=== PATIENT | male | born 1945 | race African-American/Black ===

== ENCOUNTER 2020-03-10 22:11 | Inpatient (IN) | payer MEDICARE ==
[2020-03-10] MEDS ORDERED: cefTRIAXone\\ROCEPHIN 2 GM VIAL ONE (22:30)
[2020-03-10] MEDS ORDERED: Azithromycin 500 MG VIAL ONE (22:31)
--- NOTE | 2020-03-11 01:14 | PDOC.HHP ---
Hospitalist HPI - History of Present Illness hypoxia History of Present Illness: PCP: Dr. Negro The patient is a 74-year-old male with a past medical history significant for CAD (on aspirin), HTN, HLD that presents to the emergency department as a transfer via EMS from [place] emergency department for Covid pneumonia with hypoxia. The patient reports testing positive for COVID-19 virus sometime in mid January at an unknown clinic. Since that time, the patient has had some general malaise and decreased appetite. Unfortunately, the patient also reports that he lost his 2 days ago to COVID-19 virus. Yesterday, the patient became short of breath and had a low-grade temperature. The patient denies any chest pain, heart palpitations, lightheadedness. Denies any cough, wheezing. No history of DVT/PE. Denies abdominal pain, nausea, vomiting, diarrhea. The patient's grandson drove him to the emergency department in [place] for further evaluation. At [place], the patient was found to be mildly hypoxic. Placed on 2 L nasal cannula with improvement of symptoms. CTA chest negative for Pulmonary embolism. The patient was given full dose Lovenox, dexamethasone, aspirin and Tylenol and transferred to our facility for continuation of care. ED Course: VITAL SIGNS [place] Mar 10, 2020 22:16 SCARLET Lira Madison BP: 143/79, Resp: 15, Temp: 98.8 (Oral), Pain: 0, O2 sat: 97 on (2L Oxygen), Time: 03/10/2020 22:16. VITAL SIGNS [place] Mar 10, 2020 23:30 SCARLET Lira Madison BP: 137/73, Pulse: 63, Resp: 16, Pain: 0, O2 sat: 94 on (2L Oxygen), Time: 03/10/2020 23:30. VITAL SIGNS [facility] Mar 11, 2020 00:27 SCARLET Lira Madison BP: 118/70, Pulse: 61, Resp: 20, Temp: 98.6 (Oral), Pain: 0, O2 sat: 97 on (2L Oxygen), Time: 03/11/2020 00:27. VITAL SIGNS Wed[place] 11, 2020 01:04 SCARLET Lira Madison BP: 154/71, Pulse: 59, Resp: 17, Pain: 0, O2 sat: 97 on (2L Oxygen), Time: 03/11/2020 01:04. Medications: azithromycin intravenous 500 mg IV Piggy Back Given 23:21 03/10/2020 cefTRIAXone injection 2 g IV Piggy Back Given 22:37 03/10/2020 Hospitalist ROS - Review of Systems All other systems reviewed; all pertinent +/- noted in HPI/Subj - Medication Medications: Patient poor story. Unable to reconcile home medication list. Allergies: No known drug allergies Hospitalist History - Past Medical History Source: patient, RN notes reviewed Cardiac: reports: CAD (X1 stent), HTN, [place] (2008), Hyperlipidemia Rheumatologic: reports: Gout - Past Surgical History Past Surgical History: reports: Hernia Repair (Left inguinal hernia), Other (CAD x1, left shoulder surgery) - Family History Other Family History: Noncontributory to this case - Social History Smoking Status: Former smoker (Quit greater than 13 years ago) Alcohol: reports: None Drugs: reports: none Living Situation: Alone Activity level: independent ambulation - Exam General Appearance: NAD, awake alert. negative: ill appearing Eye: anicteric sclera ENT: normocephalic atraumatic, dry oral mucosa Neck: supple, symmetric Heart: RRR, no murmur, no gallops, no rubs, normal peripheral pulses Respiratory: CTAB, no wheezes, no rales, no ronchi, no tachypnea Respiratory - other findings: On 2 L nasal cannula Gastrointestinal: soft, non-tender, normal bowel sounds, no guarding, no rigidity Extremities: no cyanosis, no edema Skin: no rashes Neurological: no focal deficits Musculoskeletal: normal tone, normal strength Psychiatric: normal affect, A&O x 3 Hospitalist Results - Radiology Interpretation Chest x-ray Status: image reviewed by me CT scan - chest Status: report reviewed by me Additional Comment: No pulmonary embolism. Multifocal Covid pneumonitis present. Hospitalist H&P A/P - Problem (1) Acute respiratory failure with hypoxia Code(s): J96.01 - ACUTE RESPIRATORY FAILURE WITH HYPOXIA Status: Acute (2) Pneumonia due to 2019 novel coronavirus Code(s): U07.1 - COVID-19; J12.89 - OTHER VIRAL PNEUMONIA Status: Acute (3) CAD (coronary artery disease) Code(s): I25.10 - ATHSCL HEART DISEASE OF [place] CORONARY ARTERY W/O ANG PCTRS Status: Chronic (4) HTN (hypertension) Code(s): I10 - ESSENTIAL (PRIMARY) HYPERTENSION Status: Chronic (5) HLD (hyperlipidemia) Code(s): E78.5 - HYPERLIPIDEMIA, UNSPECIFIED Status: Chronic (6) Gout Code(s): M10.9 - GOUT, UNSPECIFIED Status: Chronic - Plan Plan: 74/M with PMH CAD presents as a transfer from [place] for Covid pneumonia with hypoxia. Admit medical, observation status. Expected length of stay less than 2 midnights. Tested Covid positive mid January, unable to recall exact date. WBC 5.1, LA 1.5, lymphocytopenia. Troponin 0.017, BNP 77.5, DD 3.14 CXR/CTA chest multifocal Covid pneumonitis, negative PE. #Acute respiratory failure with hypoxia Likely due to Covid pneumonia. Currently on 3 L nasal cannula, stable SPO2. Continue supportive oxygen therapy. #Pneumonia due to 2019 novel coronavirus Continue azithromycin and Rocephin. Continue dexamethasone and Lovenox. Start vitamin C, D3 and zinc. Isolation precautions. Consult ID. Check CRP and ferritin level. #CAD History of stent x1. Takes baby aspirin daily. Patient does not know the name of his antihypertensive medications. Restart home dose baby aspirin. #HTN Restart home medications when reconciled by nursing. #HLD We will restart home medication when reconciled by nursing. #Gout Chronic, stable. On allopurinol at home. We will restart medication when reconciled by nursing. Lovenox for DVT prophylaxis. Pepcid for GI prophylaxis. Full code. Discussed case with Dr. Naheed Sherwood.
[2020-03-11] MEDS ORDERED: Sodium Chloride 0.9% 1,000 ML IV SCH (01:30)
[2020-03-11] MEDS ORDERED: Ondansetron PF 4 MG/2 ML Vial IVP PRN ×2 (01:30→01:34)
[2020-03-11] MEDS ORDERED: Acetaminophen 325 MG TAB PO PRN (01:30)
[2020-03-11] MEDS ORDERED: Ondansetron ODT 4 MG TAB SL PRN (01:30)
[2020-03-11] MEDS ORDERED: Ondansetron ODT 4 MG TAB PO PRN (01:34)
[2020-03-11] MEDS ORDERED: Guaifenesin DM 100-10/5 ML UDCUP PO PRN (01:34)
[2020-03-11 01:51] VITALS: BMI 33.1
[2020-03-11 05:23] LABS: #Eosinphils 0.1 thou/uL (0.0-0.7); #Lymphocytes 0.6 thou/uL (1.20-3.40); #Monocytes 0.2 thou/uL (0.11-0.59); #Neutrophils 3.6 thou/uL (1.40-6.50); %Eosinophils 1.3 % (0.0-10.0); %Lymphocytes 13.2 % (21.0-51.0); %Monocytes 4.9 % (0.0-10.0); %Neutrophils 80.7 % (42.0-75.0); Hemoglobin 10.4 g/dL (14.0-18.0); Mean Corpuscular HGB CONC 33.3 g/dL (32.0-36.0); Mean Corpuscular Hemoglobin 30.8 pg (27.0-31.0); Mean Corpuscular Volume 92.3 fL (78.0-98.0); Mean Platelet Volume 10.4 fL (7.4-10.4); Platelet Count 87 thou/uL (130-400); RBC Distribution Width 13.1 % (11.5-14.5); Red Blood Cell (RBC) Count 3.39 mill/uL (4.70-6.10); White Blood Cell (WBC) Count 4.5 thou/uL (4.8-10.8)
[2020-03-11 05:40] LABS: Anion Gap 16 mmol/L (10-20); BUN (Urea Nitrogen) 23 mg/dL (8.4-25.7); Calc. Creatinine Clearance 93 mL/min (70-130); Calcium 8.2 mg/dL (7.8-10.44); Carbon Dioxide 22 mmol/L (23-31); Chloride 105 mmol/L (98-107); Glucose 143 mg/dL (83-110); Potassium 4.5 mmol/L (3.5-5.1); Sodium 138 mmol/L (136-145)
[2020-03-11] MEDS ORDERED: Enoxaparin Sodium 40 MG/0.4 ML SYRINGE SC SCH (09:00)
[2020-03-11] MEDS: Famotidine 20 MG TAB PO SCH ×2 (09:29→19:44)
[2020-03-11] MEDS: Aspirin 81 mg Enteric Coated Tablet PO SCH (09:29)
[2020-03-11] MEDS: Zinc Sulfate 220 MG CAP PO SCH (09:30)
[2020-03-11] MEDS: Cholecalciferol 1,000 UNITS (25 MCG) TAB PO SCH (09:30)
[2020-03-11] MEDS: Ascorbic Acid 500 mg Chewable Tablet PO SCH (09:30)
[2020-03-11] MEDS: Dexamethasone 4 mg/ml Vial SLOW IVP SCH (09:31)
[2020-03-11] MEDS: Famotidine/PF 20 mg/2ml Vial SLOW IVP SCH ×2 (09:31→19:45)
--- NOTE | 2020-03-11 17:55 | CON ---
DATE OF CONSULTATION: 03/11/2020 REASON FOR CONSULTATION: Recrudescence of dyspnea after recovery from COVID. HISTORY OF PRESENT ILLNESS: A 74-year-old with history of gout, coronary artery disease with myocardial infarction and stents, and hypertension, who was diagnosed with SARS-CoV-2 infection about 3 weeks ago. Symptoms started four weeks ago actually. He never had to be admitted. His was sick at the same time more or less and both recovered, but then he developed worsening dyspnea and came back to the emergency room. Not much cough at all. No headaches. His appetite is great. No chest pain. No sputum production. No abdominal pain or diarrhea. No genitourinary symptoms. No fever. PAST MEDICAL HISTORY: Gout, coronary artery disease, myocardial infarction with stents, hyperlipidemia, and hypertension. PAST SURGICAL HISTORY: Hernia repair and left shoulder surgery. SOCIAL HISTORY: Retired, used to work for [employer]. Former smoker, is not currently smoking cigarettes, quit more than 10 years ago. Lives in [place]. FAMILY HISTORY: Coronary artery disease, diabetes type 2, and hypertension. ALLERGIES: NONE. MEDICATION LIST: 1. Aspirin. 2. Azithromycin. 3. Ceftriaxone. 4. Decadron. 5. Ondansetron. 6. Zinc. PHYSICAL EXAMINATION: VITAL SIGNS: He has been afebrile, T-max 98.6, blood pressure 150/75, heart rate 69, respiratory rate 16 to 20, and O2 saturation 98 on room air. He started at 2 L nasal cannula and is saturating at 100, so they were de-escalated. SKIN: Normal. There is no lymphadenopathy. HEENT: Unremarkable. LUNGS: With one or two focal areas with inspiratory crackles, most of the lung esquivel are clear to auscultation. HEART: S1 and S2. Regular rate without murmurs. ABDOMEN: Soft, not distended or tender. No ascites. No bladder distention. EXTREMITIES: No joint inflammatory activity. Moves extremities equally. LABORATORY DATA: He had a chest CTA, which showed no PE and multifocal COVID pneumonitis probably residual from the recent infection. White cell count 4.5, hemoglobin 10.4, platelets 87,000, and 80% neutrophils. Creatinine 1.12. Ferritin 232. CRP 5.13. ASSESSMENT AND PLAN: Coronary artery disease and hypertension with having recovered from recent SARS-CoV-2 infection. The time since symptom onset is about 28 days, so he is way past the infectious period, I would recommend discontinuation of the isolation precautions. Discontinue azithromycin, discontinue Rocephin, may continue Decadron. The patient's with SARS-CoV-2 infection sometimes go through a phase of autoimmune recrudescence after recovery and this may be what he is experiencing. It seems to be mild and he should be able to be discharged soon. In view of hx of prior [place] need to evaluate his cardiac function with echo. Job ID: [id number] MTDD
[2020-03-11] MEDS: Enoxaparin Sodium 40 MG/0.4 ML SYRINGE SC SCH (19:44)
[2020-03-11] MEDS ORDERED: Melatonin 3 MG TAB PO PRN (19:52)
[2020-03-11] MEDS ORDERED: cefTRIAXone\\ROCEPHIN 2 GM in Sodium Chloride 0.9% 100 ML IVPB SCH (22:00)
[2020-03-11] MEDS ORDERED: Azithromycin 500 MG in Sodium Chloride 0.9% 250 ML 250 ML IVPB SCH (23:00)
[2020-03-12] MEDS: Famotidine/PF 20 mg/2ml Vial SLOW IVP SCH (07:42)
[2020-03-12] MEDS: Cholecalciferol 1,000 UNITS (25 MCG) TAB PO SCH (08:09)
[2020-03-12] MEDS: Zinc Sulfate 220 MG CAP PO SCH (08:09)
[2020-03-12] MEDS: Famotidine 20 MG TAB PO SCH ×2 (08:10→20:18)
[2020-03-12] MEDS: Ascorbic Acid 500 mg Chewable Tablet PO SCH (08:10)
[2020-03-12] MEDS: Dexamethasone 4 mg/ml Vial SLOW IVP SCH (08:10)
[2020-03-12] MEDS: Aspirin 81 mg Enteric Coated Tablet PO SCH (08:10)
[2020-03-12] MEDS ORDERED: Melatonin 3 MG TAB PO PRN (09:09)
--- NOTE | 2020-03-12 19:17 | PDOC.HOSPP ---
- Subjective Encounter Date: 03/12/20 Encounter Time: 11:45 Subjective: pt up in bed no complains - Objective Vital Signs & Weight: Vital Signs (12 hours) Temp Pulse Resp BP Pulse Ox 03/12/20 15:28 98.4 F 60 16 148/70 H 94 L 03/12/20 11:41 98.4 F 61 18 143/66 H 96 03/12/20 07:31 98.3 F 57 L 18 151/72 H 98 Weight Weight 247 lb 9.6 oz I&O: 03/11/20 03/12/20 03/13/20 06:59 06:59 06:59 Intake Total 540 1752 1037 Output Total 425 650 825 Balance 115 1102 212 Result Diagrams: 03/11/20 04:47 03/11/20 04:47 Hospitalist ROS - Review of Systems Respiratory: denies: cough, dry, shortness of breath, hemoptysis, SOB with excertion, pleuritic pain, sputum, wheezing, other Cardiovascular: denies: chest pain, palpitations, orthopnea, paroxysmal noc. dyspnea, edema, light headedness, other Gastrointestinal: denies: nausea, vomiting, abdominal pain, diarrhea, constipation, melena, hematochezia, other - Medication Medications: Active Medications Generic Name Dose Route Start Last Admin Trade Name Sergioq PRN Reason Stop Dose Admin Ascorbic Acid 1,000 mg 03/11/20 09:00 03/12/20 08:10 Ascorbic Acid 500 Mg Chewable Tablet PO 1,000 mg DAILY MILAD Administration Aspirin 81 mg 03/11/20 09:00 03/12/20 08:10 Aspirin 81 Mg Enteric Coated Tablet PO 81 mg DAILY MILAD Administration Cholecalciferol 5,000 units 03/11/20 09:00 03/12/20 08:09 Cholecalciferol 1,000 Units (25 Mcg) Tab PO 5,000 units DAILY MILAD Administration Dexamethasone 6 mg 03/11/20 09:00 03/12/20 08:10 Dexamethasone 4 Mg/Ml Vial SLOW IVP 6 mg DAILY MILAD Administration Enoxaparin Sodium 40 mg 03/11/20 21:00 03/11/20 19:44 Enoxaparin Sodium 40 Mg/0.4 Ml Syringe SC 40 mg HS MILAD Administration Famotidine 20 mg 03/11/20 09:00 03/12/20 08:10 Famotidine 20 Mg Tab PO 20 mg BID MILAD Administration Zinc Sulfate 220 mg 03/11/20 09:00 03/12/20 08:09 Zinc Sulfate 220 Mg Cap PO 220 mg DAILY MILAD Administration - Exam Neck: negative: supple, symmetric, no JVD, no thyromegaly, no lymphadenopathy, no carotid bruit, JVD Heart: negative: RRR, no murmur, no gallops, no rubs, normal peripheral pulses, irregular, diminshed peripheral pulses, murmur present, II/IV, III/IV Respiratory: negative: CTAB, no wheezes, no rales, no ronchi, normal chest expansion, no tachypnea, normal percussion, rales, rhonchi, tachypneic, wheezes Hosp A/P (1) Acute respiratory failure with hypoxia Code(s): J96.01 - ACUTE RESPIRATORY FAILURE WITH HYPOXIA Status: Acute (2) Pneumonia due to 2019 novel coronavirus Code(s): U07.1 - COVID-19; J12.89 - OTHER VIRAL PNEUMONIA Status: Acute (3) CAD (coronary artery disease) Code(s): I25.10 - ATHSCL HEART DISEASE OF [place] CORONARY ARTERY W/O ANG PCTRS Status: Chronic (4) HLD (hyperlipidemia) Code(s): E78.5 - HYPERLIPIDEMIA, UNSPECIFIED Status: Chronic (5) HTN (hypertension) Code(s): I10 - ESSENTIAL (PRIMARY) HYPERTENSION Status: Chronic - Plan pt feels well. will continue steroids. will discharge home once echo is done and read.
[2020-03-12] MEDS: Enoxaparin Sodium 40 MG/0.4 ML SYRINGE SC SCH (20:17)
[2020-03-12] MEDS: Carvedilol 3.125 MG TAB PO SCH (20:18)
[2020-03-12] MEDS ORDERED: Atorvastatin Calcium 20 MG TAB PO SCH (21:00)
[2020-03-13 07:52] VITALS: BP 137/71; TEMP 97.7
[2020-03-13] MEDS: Carvedilol 3.125 MG TAB PO SCH (08:56)
[2020-03-13] MEDS: Ascorbic Acid 500 mg Chewable Tablet PO SCH (08:56)
[2020-03-13] MEDS: Aspirin 81 mg Enteric Coated Tablet PO SCH (08:56)
[2020-03-13] MEDS: Cholecalciferol 1,000 UNITS (25 MCG) TAB PO SCH (08:56)
[2020-03-13] MEDS: Famotidine 20 MG TAB PO SCH (08:57)
[2020-03-13] MEDS: Dexamethasone 4 mg/ml Vial SLOW IVP SCH (08:57)
[2020-03-13] MEDS: Zinc Sulfate 220 MG CAP PO SCH (08:58)
[2020-03-13] MEDS ORDERED: Finasteride 5 MG TAB PO SCH (09:00)
[2020-03-13] MEDS ORDERED: Amlodipine 5 MG TAB PO SCH (09:00)
[2020-03-13] MEDS ORDERED: Allopurinol 300 MG TAB PO SCH (09:00)
[2020-03-13] MEDS ORDERED: Lisinopril 2.5 MG TAB PO SCH (09:00)
--- NOTE | 2020-03-14 14:28 | PDOC.DS.DS ---
Provider - Provider Date of Admission: 03/11/20 16:27 Date of Discharge: 03/13/20 Admitting Provider: Naheed Nunez MD Consultations: Infectious Disease Primary Care Physician: David Negro MD Course - Hospital Course Hospital Course: Patient is a very pleasant 74-year-old male who comes into the hospital for shortness of breath. Patient was diagnosed with Covid in mid January. Patient while in the hospital was on room air 100%. At this time ID was consulted. Patient had an echocardiogram which indicated an EF of 50 to 55%. Patient at this time was discharged home. Patient will be sent home with steroids. Resuscitation Status: 03/11/20 01:34 Resuscitation Status Routine Co-Sign Provider: Resuscitation Status: FULL: Full Resuscitation Discussed with: patient - Labs Lab Results: 03/11/20 04:47 03/11/20 04:47 - Physical Exam Vitals: Weight Weight 247 lb 9.6 oz Physical Exam: The patient was seen and examined on the day of discharge. Problem - Problem (1) Acute respiratory failure with hypoxia Code(s): J96.01 - ACUTE RESPIRATORY FAILURE WITH HYPOXIA Status: Acute (2) Pneumonia due to 2019 novel coronavirus Code(s): U07.1 - COVID-19; J12.89 - OTHER VIRAL PNEUMONIA Status: Acute (3) CAD (coronary artery disease) Code(s): I25.10 - ATHSCL HEART DISEASE OF [place] CORONARY ARTERY W/O ANG PCTRS Status: Chronic (4) HLD (hyperlipidemia) Code(s): E78.5 - HYPERLIPIDEMIA, UNSPECIFIED Status: Chronic (5) HTN (hypertension) Code(s): I10 - ESSENTIAL (PRIMARY) HYPERTENSION Status: Chronic Plan - Discharge Medications Prescriptions: Dexamethasone [Decadron] 6 mg PO DAILY #8 tablet Aspirin [Ecotrin Low Strength] 81 mg PO DAILY #10 tab Cholecalciferol (Vitamin D3) [Vitamin D] 1,000 unit PO DAILY #15 capsule Home Medications: Medication Instructions Recorded Confirmed Type Allopurinol 300 mg PO DAILY 03/11/20 03/11/20 History Amlodipine [Norvasc] 5 mg PO DAILY 03/11/20 03/11/20 History Atorvastatin Calcium [Lipitor] 20 mg PO DAILY 03/11/20 03/11/20 History Carvedilol [Coreg] 3.125 mg PO BID 03/11/20 03/11/20 History Finasteride [Proscar] 5 mg PO DAILY 03/11/20 03/11/20 History Lisinopril [Zestril] 2.5 mg PO DAILY 03/11/20 03/11/20 History Melatonin 5 mg PO HS PRN 03/11/20 03/11/20 History Aspirin [Ecotrin Low Strength] 81 mg PO DAILY #10 tab 03/12/20 Rx Cholecalciferol (Vitamin D3) 1,000 unit PO DAILY #15 capsule 03/12/20 Rx [Vitamin D] Dexamethasone [Decadron] 6 mg PO DAILY #8 tablet 03/12/20 Rx Allergies: No Known Drug Allergies Allergy (Verified 03/11/20 02:33) PER ER NOTES - Discharge Instructions Discharge Instructions:: please take the steroids with food. Activity:: Activity as Tolerated Nourishment:: Heart Healthy Diet - Follow up Plan Referrals: David Negro MD [Primary Care Provider] - Disposition: HOME Quality - Care Measures CORE MEASURES:: N/A
== END 2020-03-13 09:41 | disposition home or self-care (01) | DRG 177 ==
LOC: ERS 22:11 → EEVIPCON 23:34 → 2SW 23:34 → OBSVTOIN 03-11 16:27
PROVIDERS: ADMIT Internal Medicine; ATTEND Internal Medicine
PROC: 8E0ZXY6 Isolation (ICD-10-PCS; principal; 2020-03-11)
DX: U07.1 COVID-19 (principal); J96.01 Acute respiratory failure with hypoxia; J12.89 Other viral pneumonia; I25.10 Atherosclerotic heart disease of native coronary artery without angina pectoris; I10 Essential (primary) hypertension; E78.5 Hyperlipidemia, unspecified; M10.9 Gout, unspecified; I25.2 Old myocardial infarction; Z87.891 Personal history of nicotine dependence; Z95.1 Presence of aortocoronary bypass graft
CPT/HCPCS: 36415; 80048; 82728; 85025; 86140; 93306; 96365; 96367; 96375; G0378; J0456; J0696; J1100; J1650

== ENCOUNTER 2025-01-17 14:00 | Inpatient (IN) | payer MEDICARE ==
[2025-01-17] MEDS ORDERED: hydrALAZINE 20 MG/ML VIAL SLOW IVP SCH (19:00)
[2025-01-17] MEDS ORDERED: Acetaminophen 325 MG TAB PO PRN (19:27)
[2025-01-17] MEDS ORDERED: Ondansetron PF 4 MG/2 ML Vial IVP PRN (19:27)
[2025-01-17] MEDS ORDERED: Sodium Chloride 0.65% Nasal 44 ML BOT EA NARE PRN (19:44)
[2025-01-17 20:08] LABS: #Basophils Less than 0.03 10x3/uL (0.0-0.2); #Eosinophils Less than 0.03 10x3/uL (0.0-0.7); #Monocytes 0.04 10x3/uL (0.11-0.59); #Neutrophils 4.34 10x3/uL (1.40-6.50); %Basophils 0.2 % (0.0-1.0); %Eosinophils 0.0 % (0.0-10.0); %Lymphocytes 12.5 % (21.0-51.0); %Monocytes 0.8 % (0.0-10.0); %Neutrophils 86.3 % (42.0-75.0); Hematocrit 29.7 % (42.0-52.0); Hemoglobin 9.2 g/dL (14.0-18.0); Mean Corpuscular Hemoglobin 31.9 pg (27.0-31.0); Mean Corpuscular Volume 103.1 fL (78.0-98.0); Platelet Count 143 10x3/uL (130-400); Red Blood Cell (RBC) Count 2.88 mill/uL (4.70-6.10); White Blood Cell (WBC) Count 5.03 10x3/uL (4.8-10.8)
[2025-01-17 20:27] LABS: Anion Gap 17 mmol/L (10-20); BUN (Urea Nitrogen) 36 mg/dL (8.4-25.7); Calc. Creatinine Clearance 42 mL/min (70-130); Calcium 9.5 mg/dL (7.8-10.44); Carbon Dioxide 15 mmol/L (23-31); Chloride 114 mmol/L (98-107); Glucose 139 mg/dL (83-110); Magnesium 1.9 mg/dL (1.6-2.6); Potassium 5.2 mmol/L (3.5-5.1); Sodium 141 mmol/L (136-145)
[2025-01-17] MEDS: Furosemide 40 MG (4 mL) VIAL SLOW IVP SCH (20:49)
[2025-01-17] MEDS: Carvedilol 6.25 MG TAB PO SCH (22:21)
[2025-01-17] MEDS: guaiFENesin/DM ER PO SCH (22:21)
[2025-01-17] MEDS: Heparin 5,000 UNITS/ML VIAL SC SCH (22:23)
[2025-01-18 01:31] LABS: Bacteria/HPF None Seen HPF (None Seen); CAUTI Indications for Culture Alt mental st,lethar; Glucose, Urine (Dipstick) Normal (Negative); Leukocyte Negative Leu/uL (Negative); Protein, Urine (Dipstick) Negative (Neg-Trace); RBC/HPF 0-3 HPF (0-3); Specific Gravity, Urine 1.008 (1.002-1.036); WBC/HPF None Seen HPF (0-3)
[2025-01-18 01:37] LABS: Urine Culture Reflex No No
[2025-01-18] MEDS: Furosemide 40 MG (4 mL) VIAL SLOW IVP SCH (06:26)
[2025-01-18] MEDS ORDERED: Magnesium 2 GM/50 ML(in water) 2 GM in Premix 1 BAG IVPB SCH (08:00)
[2025-01-18] MEDS: predniSONE 20 MG TAB PO SCH (09:00)
[2025-01-18] MEDS ORDERED: Enoxaparin 40 MG (0.4 mL) SYRINGE SC SCH (09:00)
[2025-01-18] MEDS: Sodium Bicarbonate Tab 325 MG TAB PO SCH (14:19)
[2025-01-18] MEDS ORDERED: hydrALAZINE 20 MG/ML VIAL SLOW IVP PRN (14:49)
[2025-01-19 05:39] LABS: #Basophils Less than 0.03 10x3/uL (0.0-0.2); #Eosinophils Less than 0.03 10x3/uL (0.0-0.7); #Monocytes 0.82 10x3/uL (0.11-0.59); #Neutrophils 6.06 10x3/uL (1.40-6.50); %Basophils 0.0 % (0.0-1.0); %Eosinophils 0.1 % (0.0-10.0); %Lymphocytes 14.1 % (21.0-51.0); %Monocytes 10.2 % (0.0-10.0); %Neutrophils 75.4 % (42.0-75.0); Hematocrit 25.1 % (42.0-52.0); Hemoglobin 8.0 g/dL (14.0-18.0); Mean Corpuscular Hemoglobin 31.1 pg (27.0-31.0); Mean Corpuscular Volume 97.7 fL (78.0-98.0); Platelet Count 140 10x3/uL (130-400); Red Blood Cell (RBC) Count 2.57 mill/uL (4.70-6.10); White Blood Cell (WBC) Count 8.04 10x3/uL (4.8-10.8)
[2025-01-19 05:41] LABS: Anion Gap 15 mmol/L (10-20); BUN (Urea Nitrogen) 57 mg/dL (8.4-25.7); Calc. Creatinine Clearance 31 mL/min (70-130); Calcium 8.5 mg/dL (7.8-10.44); Carbon Dioxide 22 mmol/L (23-31); Chloride 109 mmol/L (98-107); Glucose 116 mg/dL (83-110); Potassium 4.9 mmol/L (3.5-5.1); Sodium 141 mmol/L (136-145)
[2025-01-19 08:52] LABS: Iron 43 ug/dL (65-175); Iron Binding Capacity, Total 294 mcg/dL (261-462)
[2025-01-19] MEDS: EPOETIN ALFA-EPBX (ESRD) 10,000 UNITS/ML VIAL SC SCH (12:09)
[2025-01-20 05:52] LABS: Hematocrit 25.2 % (42.0-52.0); Hemoglobin 8.0 g/dL (14.0-18.0); Mean Corpuscular Hemoglobin 30.9 pg (27.0-31.0); Mean Corpuscular Volume 97.3 fL (78.0-98.0); Platelet Count 147 10x3/uL (130-400); Red Blood Cell (RBC) Count 2.59 mill/uL (4.70-6.10); White Blood Cell (WBC) Count 7.35 10x3/uL (4.8-10.8)
[2025-01-20 06:09] LABS: Anion Gap 14 mmol/L (10-20); BUN (Urea Nitrogen) 74 mg/dL (8.4-25.7); Calc. Creatinine Clearance 30 mL/min (70-130); Calcium 8.7 mg/dL (7.8-10.44); Carbon Dioxide 22 mmol/L (23-31); Chloride 108 mmol/L (98-107); Glucose 103 mg/dL (83-110); Potassium 4.6 mmol/L (3.5-5.1); Sodium 139 mmol/L (136-145)
[2025-01-20] MEDS: Furosemide 40 MG TAB PO SCH (09:06)
[2025-01-20] MEDS: Melatonin 3 MG TAB PO SCH (23:18)
[2025-01-21 04:50] LABS: Hemoglobin 7.7 g/dL (14.0-18.0)
[2025-01-21 05:05] LABS: Anion Gap 14 mmol/L (10-20); BUN (Urea Nitrogen) 86 mg/dL (8.4-25.7); Calc. Creatinine Clearance 27 mL/min (70-130); Calcium 8.3 mg/dL (7.8-10.44); Carbon Dioxide 22 mmol/L (23-31); Chloride 111 mmol/L (98-107); Glucose 102 mg/dL (83-110); Potassium 4.6 mmol/L (3.5-5.1); Sodium 142 mmol/L (136-145)
[2025-01-21] MEDS: predniSONE 20 MG TAB PO SCH (09:08)
[2025-01-21 13:04] LABS: Hemoglobin 9.0 g/dL (14.0-18.0)
[2025-01-22 06:16] VITALS: BMI 30.8
[2025-01-22 06:58] LABS: Hematocrit 25.7 % (42.0-52.0); Hemoglobin 8.0 g/dL (14.0-18.0); Mean Corpuscular Hemoglobin 31.1 pg (27.0-31.0); Mean Corpuscular Volume 100.0 fL (78.0-98.0); Platelet Count 146 10x3/uL (130-400); Red Blood Cell (RBC) Count 2.57 mill/uL (4.70-6.10); White Blood Cell (WBC) Count 7.36 10x3/uL (4.8-10.8)
[2025-01-22 07:14] LABS: Anion Gap 12 mmol/L (10-20); BUN (Urea Nitrogen) 89 mg/dL (8.4-25.7); Calc. Creatinine Clearance 31 mL/min (70-130); Calcium 8.5 mg/dL (7.8-10.44); Carbon Dioxide 21 mmol/L (23-31); Chloride 115 mmol/L (98-107); Glucose 88 mg/dL (83-110); Potassium 4.3 mmol/L (3.5-5.1); Sodium 144 mmol/L (136-145)
[2025-01-23 05:49] LABS: #Basophils Less than 0.03 10x3/uL (0.0-0.2); #Eosinophils 0.17 10x3/uL (0.0-0.7); #Monocytes 0.90 10x3/uL (0.11-0.59); #Neutrophils 4.68 10x3/uL (1.40-6.50); %Basophils 0.1 % (0.0-1.0); %Eosinophils 2.1 % (0.0-10.0); %Lymphocytes 27.0 % (21.0-51.0); %Monocytes 11.3 % (0.0-10.0); %Neutrophils 58.9 % (42.0-75.0); Hematocrit 27.7 % (42.0-52.0); Hemoglobin 8.5 g/dL (14.0-18.0); Mean Corpuscular Hemoglobin 30.7 pg (27.0-31.0); Mean Corpuscular Volume 100.0 fL (78.0-98.0); Platelet Count 147 10x3/uL (130-400); Red Blood Cell (RBC) Count 2.77 mill/uL (4.70-6.10); White Blood Cell (WBC) Count 7.96 10x3/uL (4.8-10.8)
[2025-01-23 06:14] LABS: Anion Gap 13 mmol/L (10-20); BUN (Urea Nitrogen) 82 mg/dL (8.4-25.7); Calc. Creatinine Clearance 32 mL/min (70-130); Calcium 8.8 mg/dL (7.8-10.44); Carbon Dioxide 20 mmol/L (23-31); Chloride 115 mmol/L (98-107); Glucose 95 mg/dL (83-110); Potassium 4.3 mmol/L (3.5-5.1); Sodium 144 mmol/L (136-145)
[2025-01-23 08:05] VITALS: TEMP 98
[2025-01-23 13:44] VITALS: BP 162/73
== END 2025-01-23 16:49 | disposition home or self-care (01) | DRG 291 ==
LOC: OBS 18:02
PROVIDERS: ADMIT Hospitalist; ATTEND Internal Medicine
DX: I13.0 Hypertensive heart and chronic kidney disease with heart failure and stage 1 through stage 4 chronic kidney disease, or unspecified chronic kidney disease (principal); I50.23 Acute on chronic systolic (congestive) heart failure; N17.9 Acute kidney failure, unspecified; E87.20 Acidosis, unspecified; J44.1 Chronic obstructive pulmonary disease with (acute) exacerbation; N18.4 Chronic kidney disease, stage 4 (severe); I25.10 Atherosclerotic heart disease of native coronary artery without angina pectoris; E78.5 Hyperlipidemia, unspecified; M10.9 Gout, unspecified; I25.2 Old myocardial infarction; E87.5 Hyperkalemia; D63.1 Anemia in chronic kidney disease; D50.9 Iron deficiency anemia, unspecified; N28.1 Cyst of kidney, acquired; Z79.899 Other long term (current) drug therapy; Z79.82 Long term (current) use of aspirin; Z87.891 Personal history of nicotine dependence; Z95.5 Presence of coronary angioplasty implant and graft
CPT/HCPCS: 36415; 76770; 80048; 81001; 82728; 83036; 83540; 83550; 83735; 84443; 85018; 85025; 85027; 86850; 86900; 86901; 93306; 93798; A4217; J1644; J1940; J2916; J2919; J7030; J7512; Q5105